=== PATIENT | female | born 1950 | race Caucasian/White ===

== ENCOUNTER 2018-08-28 09:03 | Emergency (ER) | payer OTHER, MEDICARE ==
[2018-08-28 10:27] LABS: HEMATOCRIT 24.6 % (37.0-47.0); IMMATURE GRANULOCYTES 3.4 % (0.0-5.0); MEAN CELL VOLUME 107.9 fL CALC (80.0-100.0); MEAN CORPUSCULAR HGB 29.8 pG CALC (26.0-32.0); MEAN CORPUSCULAR HGB CONC 27.6 g/L CALC (32.0-36.0); NEUT# 6.23 thou/uL (2.00-7.15); RED BLOOD COUNT 2.28 mill/uL (4.20-5.60); RED CELL DISTRI WIDTH 14.1 % (11.5-15.5)
[2018-08-28 11:01] LABS: ALBUMIN 1.5 g/dL (3.2-5.0); ALKALINE PHOSPHATASE 55 u/l (38-126); BILIRUBIN, TOTAL 0.3 mg/dL (0.0-1.4); BUN 19 mg/dL (8-23); BUN/CREATININE RATIO 21 (12-20 (CALC)); CARBON DIOXIDE 10 mmol/l (22-30); CHLORIDE 113 mmol/l (95-108); CREATININE 0.9 mg/dL (0.5-1.0); GFR > 60 ML/MIN (>=60 (CALC)); GFR FOR AFR.AMER. > 60 ML/MIN (>=60 (CALC)); SGOT/AST 695 u/l (9-36); SODIUM 140 mmol/l (137-146); TOTAL PROTEIN 3.4 g/dL (6.3-8.2)
[2018-08-28 11:05] LABS: ANION GAP 24 (6-22 (CALC)); POTASSIUM 6.9 mmol/l (3.5-5.1)
[2018-08-28 11:10] LABS: HEMOGLOBIN 6.8 g/dl (12.0-16.0)
== END 2018-08-28 10:40 | disposition expired | DRG 999 ==
LOC: ED 09:03
PROVIDERS: Emergency Medicine
PROC: 5A12012 Performance of Cardiac Output, Single, Manual (ICD-10-PCS; principal; 2018-08-28)
PROC: 0BH17EZ Insertion of Endotracheal Airway into Trachea, Via Natural or Artificial Opening (ICD-10-PCS; 2018-08-28)
PROC: 0W9D3ZZ Drainage of Pericardial Cavity, Percutaneous Approach (ICD-10-PCS; 2018-08-28)
PROC: 06HY33Z Insertion of Infusion Device into Lower Vein, Percutaneous Approach (ICD-10-PCS; 2018-08-28)
PROC: 0T9B70Z Drainage of Bladder with Drainage Device, Via Natural or Artificial Opening (ICD-10-PCS; 2018-08-28)
PROC: 30233N1 Transfusion of Nonautologous Red Blood Cells into Peripheral Vein, Percutaneous Approach (ICD-10-PCS; 2018-08-28)
PROC: 30233N1 Transfusion of Nonautologous Red Blood Cells into Peripheral Vein, Percutaneous Approach (ICD-10-PCS; 2018-08-28)
DX: V89.2XXA Person injured in unspecified motor-vehicle accident, traffic, initial encounter (principal); I31.4 Cardiac tamponade; S22.42XA Multiple fractures of ribs, left side, initial encounter for closed fracture; S72.91XA Unspecified fracture of right femur, initial encounter for closed fracture; S32.591A Other specified fracture of right pubis, initial encounter for closed fracture; S27.322A Contusion of lung, bilateral, initial encounter; I46.8 Cardiac arrest due to other underlying condition; T14.8XXA Other injury of unspecified body region, initial encounter; S49.92XA Unspecified injury of left shoulder and upper arm, initial encounter
CPT/HCPCS: P9016